=== PATIENT | male | born 1980 | race Caucasian/White ===

== ENCOUNTER 2017-12-15 01:13 | Emergency (ER) | payer SELFPAY ==
[~2017-12-15] VITALS: Ht 188 cm; Wt 115.0 kg
[2017-12-15] MEDS ORDERED: LEVE500 PO ×2 (01:18→04:30)
[2017-12-15] MEDS ORDERED: DEPA500T3 PO (01:18)
[2017-12-15 01:20] VITALS: BP 164/90; PULSE 89; RESP 18; TEMP 98.1; O2SAT 98
[2017-12-15] MEDS ORDERED: LORazepam 2 MG/ML VIAL ONE (01:21)
[2017-12-15 01:26] VITALS: O2SAT 99
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
[2017-12-15] MEDS ORDERED: LORazepam 2 MG/ML VIAL IV PUSH ONE (01:30)
[2017-12-15] MEDS ORDERED: SODIUM CHLOR 0.9% 1000 ML INJ 1,000 ML IV ONE (01:30)
[2017-12-15 01:37] LABS: AUTOMATED NEUTROPHIL # 7.5 TH/MM3 (1.8-7.7); BASOPHIL # 0.1 TH/MM3 (0-0.2); BASOPHIL % 0.9 % (0.0-2.0); EOSINOPHIL # 0.1 TH/MM3 (0-0.4); EOSINOPHIL % 0.8 % (0.0-4.0); HEMATOCRIT 43.5 % (39.0-51.0); LYMPH % 19.7 % (9.0-44.0); MEAN CELL VOLUME 83.7 FL (80.0-100.0); MEAN CORPUSCULAR HEMOGLOBIN 28.8 PG (27.0-34.0); MEAN CORPUSCULAR HGB CONC 34.5 % (32.0-36.0); MEAN PLATELET VOLUME 9.2 FL (7.0-11.0); MONO % 5.8 % (0.0-8.0); MONOCYTE # 0.6 TH/MM3 (0-0.9); NEUT % 72.8 % (16.0-70.0); PLATELET COUNT 210 TH/MM3 (150-450); RED BLOOD COUNT 5.19 MIL/MM3 (4.50-5.90); RED CELL DISTRIBUTION WIDTH 14.1 % (11.6-17.2); WHITE BLOOD COUNT 10.3 TH/MM3 (4.0-11.0)
[2017-12-15 01:53] LABS: INTERNATIONAL NORMALIZED RATIO 1.1 RATIO; PROTHROMBIN TIME - PATIENT 10.7 SEC (9.8-11.6)
[2017-12-15 01:57] LABS: ALBUMIN 4.3 GM/DL (3.4-5.0); ALT (GPT) 19 U/L (12-78); AST (GOT) 14 U/L (15-37); BICARBONATE 20.2 MEQ/L (21.0-32.0); BLOOD UREA NITROGEN 14 MG/DL (7-18); CHLORIDE 109 MEQ/L (98-107); CREATININE 1.35 MG/DL (0.60-1.30); GLOMERULAR FILTRATION RATE 60 ML/MIN (>89); GLUCOSE,RANDOM 82 MG/DL (74-106); MAGNESIUM 2.1 MG/DL (1.5-2.5); SODIUM (NA) 142 MEQ/L (136-145)
[2017-12-15] MEDS ORDERED: WARF4TAB51 PO (01:58)
[2017-12-15 01:59] LABS: ALKALINE PHOSPHATASE 61 U/L (45-117); TOTAL BILIRUBIN ADULT 0.4 MG/DL (0.2-1.0); TOTAL PROTEIN 8.3 GM/DL (6.4-8.2)
[2017-12-15] MEDS ORDERED: levETIRAcetam INJ 500 MG in SODIUM CHLORIDE 0.9% INJ 100 ML IV ONE (02:00)
--- NOTE | 2017-12-15 02:13 | RADRPT ---
EXAM DATE/TIME: 12/15/2017 01:38 [facility] COMPARISON: No previous studies available for comparison. INDICATIONS : Shortness of breath. MEDICAL HISTORY : None. SURGICAL HISTORY : None. ENCOUNTER: Initial ACUITY: 1 day PAIN SCORE: 0/10 LOCATION: Bilateral chest FINDINGS: A single view of the chest demonstrates the lungs to be symmetrically aerated without evidence of mas s, infiltrate or effusion. The cardiomediastinal contours are unremarkable. Osseous structures are intact. CONCLUSION: The lungs are clear. Eliezer Short MD on December 15, 2017 at 2:11 Board Certified Radiologist. This report was verified electronically.
[2017-12-15 02:46] LABS: BILIRUBIN, URINE NEG (NEG); BLOOD, URINE NEG (NEG); GLUCOSE,URINE NEG (NEG); KETONE, URINE 10 mg/dL (NEG); MUCUS URINE FEW /lpf (OCC); NITRITE,URINE NEG (NEG); URINE COLOR LIGHT-YELLOW (YELLW/STRAW); URINE LEUKOCYTE ESTERASE TRACE (NEG)
--- NOTE | 2017-12-15 02:52 | RADRPT ---
EXAM DATE/TIME: 12/15/2017 02:03 [facility] COMPARISON: No previous studies available for comparison. INDICATIONS : Seizure. RADIATION DOSE: 56.35 CTDIvol (mGy) MEDICAL HISTORY : Cardiovascular disease. Seizures. SURGICAL HISTORY : None. ENCOUNTER: Initial ACUITY: 1 day PAIN SCALE: 0/10 LOCATION: cranial TECHNIQUE: Multiple contiguous axial images were obtained of the head. Using automated exposure control and adj ustment of the mA and/or kV according to patient size, radiation dose was kept as low as reasonably a chievable to obtain optimal diagnostic quality images. DICOM format image data is available electro nically for review and comparison. FINDINGS: CEREBRUM: The ventricles are normal for age. No evidence of midline shift, mass lesion, hemorrhage or acute in farction. No extra-axial fluid collections are seen. POSTERIOR FOSSA: The cerebellum and brainstem are intact. The 4th ventricle is midline. The cerebellopontine angle i s unremarkable. EXTRACRANIAL: The visualized portion of the orbits is intact. SKULL: The calvaria is intact. No evidence of skull fracture. CONCLUSION: 1. Negative noncontrast CT brain. Eliezer Short MD on December 15, 2017 at 2:50 Board Certified Radiologist. This report was verified electronically.
[2017-12-15 03:00] VITALS: BP 146/88; PULSE 68; RESP 18; O2SAT 97
[2017-12-15 04:31] VITALS: BP 138/81; PULSE 62; RESP 18; O2SAT 97
[2017-12-15 04:32] VITALS: BP 146/88; PULSE 68; RESP 18; O2SAT 97
[2017-12-15 06:08] VITALS: BP 138/74; PULSE 61; RESP 16; O2SAT 97
[2017-12-15] MEDS ORDERED: LISI-519 PO (08:49)
[2017-12-15] MEDS ORDERED: NITR1SUB3 SL (08:49)
--- NOTE | 2017-12-15 11:27 | EKG ---
Date Performed: 12/15/2017 Time Performed: 01:33:16 PTAGE: 37 years EKG: Sinus rhythm POSSIBLE RIGHT VENTRICULAR CONDUCTION DELAY BORDERLINE ECG NO PREVIOUS TRACING DOCTOR: Lizbet Richards Interpretating Date/Time 12/17/2017 07:27:18
== END 2017-12-15 06:31 | disposition home or self-care (01) ==
LOC: NEPE 01:13 → NEDAMB 06:31
DX: G40.909 Epilepsy, unspecified, not intractable, without status epilepticus (principal); F19.10 Other psychoactive substance abuse, uncomplicated; F14.10 Cocaine abuse, uncomplicated; F17.210 Nicotine dependence, cigarettes, uncomplicated; Z91.14 Patient's other noncompliance with medication regimen; Z87.820 Personal history of traumatic brain injury; Z79.01 Long term (current) use of anticoagulants; Z79.899 Other long term (current) drug therapy
CPT/HCPCS: 70450; 71045; 80053; 80164; 80307; 81001; 83735; 85025; 85610; 85730; 93005; 96361; 96365; 96375; 99285; J1953; J2060; J7030

== ENCOUNTER 2017-12-15 07:32 | Emergency (ER) | payer SELFPAY ==
[~2017-12-15] VITALS: Ht 190.5 cm; Wt 100.0 kg
[~2017-12-15 07:32] MED LIST: DEPA500T3 PO; LEVE500 PO; WARF4TAB51 PO
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
[2017-12-15] MEDS ORDERED: VALPROATE INJ 750 MG in SODIUM CHLORIDE 0.9% INJ 100 ML IV ONE (08:30)
[2017-12-15] MEDS ORDERED: levETIRAcetam INJ 500 MG in SODIUM CHLORIDE 0.9% INJ 100 ML IV ONE (08:30)
[2017-12-15 08:40] VITALS: BP 146/88; PULSE 75; RESP 17; TEMP 98.6; O2SAT 99
[2017-12-15 08:42] VITALS: BP 146/88; PULSE 73; RESP 17; TEMP 98.6; O2SAT 99
[2017-12-15] MEDS ORDERED: NITR1SUB3 SL (08:49)
[2017-12-15] MEDS ORDERED: LISI-519 PO (08:49)
== END 2017-12-15 09:27 | disposition left against medical advice (07) ==
LOC: NEPC 07:32
DX: G40.909 Epilepsy, unspecified, not intractable, without status epilepticus (principal); F17.210 Nicotine dependence, cigarettes, uncomplicated; Z91.14 Patient's other noncompliance with medication regimen; Z88.0 Allergy status to penicillin; Z79.899 Other long term (current) drug therapy; Z79.01 Long term (current) use of anticoagulants
CPT/HCPCS: 99281

== ENCOUNTER 2017-12-15 09:36 | Observation (INO) | payer SELFPAY ==
[~2017-12-15] VITALS: Ht 190.5 cm; Wt 3.0 kg
[2017-12-15] VITALS (8 sets, daily range): BP systolic 131–162; BP diastolic 82–94; PULSE 63–73; RESP 17–20; TEMP 97.3–98.3; O2SAT 95–99
[~2017-12-15 09:36] MED LIST changes: +LISI-519 PO; +NITR1SUB3 SL
[2017-12-15] MEDS ORDERED: levETIRAcetam INJ 500 MG in SODIUM CHLORIDE 0.9% INJ 100 ML IV ONE (10:00)
[2017-12-15] MEDS ORDERED: VALPROATE INJ 750 MG in SODIUM CHLORIDE 0.9% INJ 100 ML IV ONE (10:00)
--- NOTE | 2017-12-15 10:09 | PD ---
HPI Chief Complaint: Seizure Time Seen by Provider: 09:53 Travel History International Travel<30 days: No Contact w/Intl Traveler<30days: No Traveled to known affect area: No History of Present Illness HPI This patient signed out AGAINST MEDICAL ADVICE a few minutes ago. I had wanted to keep him overnight for uncontrolled seizure disorder. He has been noncompliant with his medications. He refused his IV loading of Depakote and Keppra. He walked upstairs to the [facility] and reportedly had another seizure. He is brought back down for the third time today. This time he agrees to stay and receive his medications. Duration of the event is unknown. I did not witness it nor there are any eyewitnesses to question at this time. His only been out of the emergency room a few minutes. Symptom severity is moderate. No alleviating factors. He does not look postictal. Symptoms exacerbated by his noncompliance and poor judgment PFSH Past Medical History Hx Anticoagulant Therapy: Yes Cardiovascular Problems: Yes (AORTIC VALVE) Seizures: Yes Tetanus Vaccination: < 5 Years Past Surgical History Neurologic Surgery: Yes (PIECE OF SHRAPNEL REMOVED FROM HEAD) Social History Alcohol Use: Yes (Occasional use) Tobacco Use: Yes (4-5 cigarettes per day) Substance Use: Yes (MARIJUANA) Allergies-Medications (Allergen,Severity, Reaction): Coded Allergies: Penicillins (Verified Allergy, Unknown, 12/15/17) iodine (Verified Allergy, Unknown, 12/15/17) Reported Meds & Prescriptions Reported Meds & Active Scripts Active Keppra (Levetiracetam) 500 Mg Tab 500 Mg PO BID Reported Nitroglycerin SL (Nitroglycerin) 0.4 Mg Subl 0.4 Mg SL DIRECTED PRN ONE TABLET UNDER THE TONGUE NEEDED FOR CHEST PAIN, MAY REPEAT EVERY FIVE MINUTES FOR A TOTAL OF 3 DOSES OR CALL 911 IF NO RELIEF Lisinopril 5 Mg Tab 5 Mg PO DAILY Warfarin 2 Mg Tab Unknown Dose PO DAILY Depakote ER (Divalproex Sodium) 500 Mg Elidia 500 Mg PO DAILY Review of Systems General / Constitutional: No: Fever Eyes: No: Visual changes HENT: No: Headaches Cardiovascular: No: Chest Pain or Discomfort Respiratory: No: Shortness of Breath Gastrointestinal: No: Abdominal Pain Genitourinary: No: Dysuria Musculoskeletal: No: Pain Skin: No Rash Neurologic: Positive: Seizures, No: Weakness Psychiatric: No: Depression Endocrine: No: Polydipsia Hematologic/Lymphatic: No: Easy Bruising Physical Exam Narrative GENERAL: Well-nourished, well-developed patient in no apparent distress. SKIN: Focused skin assessment reveals no rash and nodules. Skin is Warm and dry. HEAD: Atraumatic. Normocephalic. EYES: Pupils equal and round. No scleral icterus. No injection or drainage. ENT: No nasal bleeding or discharge. Mucous membranes pink and moist. NECK: Trachea midline. No JVD. CARDIOVASCULAR: Regular rate and rhythm. No murmur appreciated. RESPIRATORY: No accessory muscle use. Clear to auscultation. Breath sounds equal bilaterally. GASTROINTESTINAL: Abdomen soft, non-tender, nondistended. Hepatic and splenic margins not palpable. MUSCULOSKELETAL: No obvious deformities. No clubbing. No cyanosis. No edema. NEUROLOGICAL: Awake and alert. No obvious cranial nerve deficits. Motor grossly within normal limits. Normal speech. PSYCHIATRIC: Appropriate mood and affect; insight and judgment poor Data Data Last Documented VS Vital Signs Date Time Temp Pulse Resp B/P (MAP) Pulse Ox O2 Delivery O2 Flow Rate FiO2 12/15/17 09:44 97.8 73 18 157/94 (115) 98 Room Air Orders Orders Iv Access Insert/Monitor (12/15/17 09:55) Levetiracetam Inj (Keppra Inj) (12/15/17 10:00) Valproate Inj (Depacon Inj) (12/15/17 10:00) Electrocardiogram (12/15/17 07:44) MDM Medical Decision Making Medical Screen Exam Complete: Yes Emergency Medical Condition: Yes Medical Record Reviewed: Yes Differential Diagnosis Recurrent seizure, pseudoseizure, tremor Narrative Course I have reviewed the patient's electronic medical record. Reviewed both visits from earlier today Patient now agrees to stay in the hospital. I am giving him IV Depakote and IV Keppra as I had ordered on the previous visit that he refused but now agrees to take We will observe him for a while Curiously neither myself nor the night physician noticed any type of postictal state or injury from all of these seizures I reviewed the hospitalist will admit for uncontrolled seizure disorder Diagnosis Primary Impression: Uncontrolled seizures Qualified Codes: R56.9 - Unspecified convulsions Additional Impressions: Noncompliance Epilepsy Qualified Codes: G40.909 - Epilepsy, unspecified, not intractable, without status epilepticus Admitting Information Admitting Physician Requests: it Nitin Young MD Dec 15, 2017 10:09
[2017-12-15] MEDS ORDERED: LACTULOSE SYRUP 20 GM/30 ML CUP PO PRN (11:30)
[2017-12-15] MEDS ORDERED: NALOXONE HCL 0.4 MG/ML AMP IV PUSH PRN (11:30)
[2017-12-15] MEDS ORDERED: ONDANSETRON HCL 4 MG/2 ML VIAL IVP PRN (11:30)
[2017-12-15] MEDS ORDERED: SENNOSIDES 8.6 MG TAB PO PRN (11:30)
[2017-12-15] MEDS ORDERED: SODIUM CHLORIDE 0.9% FLUSH 10 ML FLUSH IV FLUSH PRN (11:30)
[2017-12-15] MEDS ORDERED: MAGNESIUM HYDROXIDE SUSP 30 ML CUP PO PRN (11:30)
[2017-12-15] MEDS ORDERED: BISACODYL 10 MG SUPP RECTAL PRN (11:30)
[2017-12-15] MEDS ORDERED: amLODIPine BESYLATE 5 MG TAB PO ONE (12:00)
[2017-12-15] MEDS ORDERED: ENOXAPARIN SODIUM 40 MG/0.4 ML SYRINGE SQ SCH (12:00)
[2017-12-15] MEDS: SODIUM CHLOR 0.9% 1000 ML INJ 1,000 ML IV SCH ×2 (12:05→20:39)
[2017-12-15] MEDS: ACETAMINOPHEN 325 MG TAB PO PRN ×2 (12:07→20:53)
--- NOTE | 2017-12-15 15:13 | HHI.HP ---
HPI Service [facility] Primary Care Physician [facility] Admission Diagnosis uncontrolled sz disorder Diagnoses: Chief Complaint: Seizure Travel History International Travel<30 Days: No Contact w/Intl Traveler <30 Da: No Traveled to Known Affected Are: No History of Present Illness Written by Daryl Aguilera, acting as scribe for Dr. Maciel on 12/15/17 at 15:13. Patient is a 37-year-old male with primary medical history of seizure disorder, questionable valve disorder, noncompliance who came into the hospital for uncontrolled seizures. Apparently, patient states that he called the ambulance last night or his roommate has called the ambulance last night because of uncontrolled seizure. Physicians in the ED are working him up and he signed out AGAINST MEDICAL ADVICE and went to the cafeteria. Reportedly he had another episode of seizure. Patient has been noncompliant with his medications. Stating he just moved from [place] to the area about a week ago. States that he had multiple seizures yesterday and today. States that his girlfriend ran away with his medication and his truck. States that when she had seizures his whole body shakes. He also reports that he has a [facility] and his last dose that he took was Friday. States that he is supposed to be on it every day however he only takes it for about 3 times a week. Admits to medication noncompliance. He has not established with the [facility] in the area. Patient does not appear to be post ictal. He states that his seizures started after he had piece of shrapnel removed from his head, ? Craniotomy. Reports headache, back of his head, nonradiating , does not know what alleviates or aggravates his symptoms. Reports occasional anxiety, PTSD but not on any meds. Denies SOB/ dyspnea. Denies chest pain, palpitations. Denies fevers, chills, n/v/d. Denies dysuria. Review of Systems Except as stated in HPI: all other systems reviewed are Neg Past Family Social History Past Medical History Valve Issue Seizure DO HTN Past Surgical History Right Ankle Surgery Crainiotomy for shrapnel injury Reported Medications Reported Meds & Active Scripts Active Keppra (Levetiracetam) 500 Mg Tab 500 Mg PO BID Reported Nitroglycerin SL (Nitroglycerin) 0.4 Mg Subl 0.4 Mg SL DIRECTED PRN ONE TABLET UNDER THE TONGUE NEEDED FOR CHEST PAIN, MAY REPEAT EVERY FIVE MINUTES FOR A TOTAL OF 3 DOSES OR CALL 911 IF NO RELIEF Lisinopril 5 Mg Tab 5 Mg PO DAILY Warfarin 2 Mg Tab Unknown Dose PO DAILY Depakote ER (Divalproex Sodium) 500 Mg Elidia 500 Mg PO DAILY Allergies: Coded Allergies: Penicillins (Verified Allergy, Unknown, 12/15/17) iodine (Verified Allergy, Unknown, 12/15/17) Active Ordered Medications Current Medications Medications (Trade) Dose Ordered Sig/Nehal Route Start Time Stop Time Status Last Admin Sodium Chloride 1,000 ml @ 100 mls/hr Q10H IV 12/15/17 11:27 12/15/17 12:05 (NS Flush) 2 ml UNSCH PRN IV FLUSH 12/15/17 11:30 (NS Flush) 2 ml BID IV FLUSH 12/15/17 21:00 (Tylenol) 650 mg Q4H PRN PO 12/15/17 11:30 12/15/17 12:07 (Zofran Inj) 4 mg Q6H PRN IVP 12/15/17 11:30 (Lovenox Inj) 40 mg Q24H SQ 12/15/17 12:00 (Narcan Inj) 0.4 mg UNSCH PRN IV PUSH 12/15/17 11:30 (Charlene-Colace) 1 tab BID PO 12/15/17 21:00 (Milk Of Magnesia Liq) 30 ml Q12H PRN PO 12/15/17 11:30 (Senokot) 17.2 mg Q12H PRN PO 12/15/17 11:30 (Dulcolax Supp) 10 mg DAILY PRN RECTAL 12/15/17 11:30 (Lactulose Liq) 30 ml DAILY PRN PO 12/15/17 11:30 (Depakote Er) 500 mg DAILY PO 12/16/17 09:00 (Keppra) 500 mg BID PO 12/15/17 21:00 (Prinivil) 5 mg DAILY PO 12/16/17 09:00 (Norvasc) 5 mg DAILY PO 12/16/17 09:00 Family History Does not know family medical history, family members when he was 15 Social History Recently moved here from [place]. [facility] but has not [facility] with the [facility] in the area Alcohol use, not daily - 2-3 beers twice a month Smoking 2-3 cigarettes/ day Denies Illicit drug use Physical Exam Vital Signs Vital Signs Date Time Temp Pulse Resp B/P (MAP) Pulse Ox O2 Delivery O2 Flow Rate FiO2 12/15/17 09:44 97.8 73 18 157/94 (115) 98 Room Air 12/15/17 09:43 73 18 97 Room Air 12/15/17 09:39 97.8 73 18 157/94 (115) 97 Physical Exam GENERAL: This is a well-nourished, well-developed patient, in no apparent distress. SKIN: No rashes, ecchymoses or lesions. Cool and dry. HEAD: Atraumatic. Normocephalic. No temporal or scalp tenderness. EYES: Pupils equal round and reactive. Extraocular motions intact. No scleral icterus. No injection or drainage. ENT: Nose without bleeding, purulent drainage or septal hematoma. Throat without erythema, tonsillar hypertrophy or exudate. Uvula midline. Airway patent. NECK: Trachea midline. No JVD or lymphadenopathy. Supple, nontender, no meningeal signs. CARDIOVASCULAR: Regular rate and rhythm without murmurs, gallops, or rubs. RESPIRATORY: Clear to auscultation. Breath sounds equal bilaterally. No wheezes , rales, or rhonchi. GASTROINTESTINAL: Abdomen soft, non-tender, nondistended. No hepato-splenomegaly , or palpable masses. No guarding. MUSCULOSKELETAL: Extremities without clubbing, cyanosis, or edema. No joint tenderness, effusion, or edema noted. No calf tenderness. Negative Homans sign bilaterally. NEUROLOGICAL: Awake and alert. Cranial nerves II through XII intact. Motor and sensory grossly within normal limits. Five out of 5 muscle strength in all muscle groups. Normal speech. Imaging CT of the head negative Caprini VTE Risk Assessment Caprini VTE Risk Assessment: No/Low Risk (score <= 1) Caprini Risk Assessment Model Point Value = 1 Point Value = 2 Point Value = 3 Point Value = 5 Age 41-60 Minor surgery BMI > 25 kg/m2 Swollen legs Varicose veins or History of unexplained or recurrent spontaneous Oral contraceptives or hormone replacement Sepsis (< 1 month) Serious lung disease, including pneumonia (< 1 month) Abnormal pulmonary function Acute myocardial infarction Congestive heart failure (< 1 month) History of inflammatory bowel disease Medical patient at bed rest Age 61-74 Arthroscopic surgery Major open surgery (> 45 min) Laparoscopic surgery (> 45 min) Malignancy Confined to bed (> 72 hours) Immobilizing plaster cast Central venous access Age >= 75 History of VTE Family history of VTE Factor V Leiden Prothrombin [id number] Lupus anticoagulant Anticardiolipin antibodies Elevated serum homocysteine Heparin-induced thrombocytopenia Other congenital or acquired thrombophilia Stroke (< 1 month) Elective arthroplasty Hip, pelvis, or leg fracture Acute spinal cord injury (< 1 month) Prophylaxis Regimen Total Risk Factor Score Risk Level Prophylaxis Regimen 0-1 Low Early ambulation 2 Moderate Order ONE of the following: *Sequential Compression Device (SCD) *Heparin 5000 units SQ BID 3-4 Higher Order ONE of the following medications: *Heparin 5000 units SQ TID *Enoxaparin/Lovenox 40 mg SQ daily (WT < 150 kg, CrCl > 30 mL/min) *Enoxaparin/Lovenox 30 mg SQ daily (WT < 150 kg, CrCl > 10-29 mL/min) *Enoxaparin/Lovenox 30 mg SQ BID (WT < 150 kg, CrCl > 30 mL/min) AND/OR *Sequential Compression Device (SCD) 5 or more Highest Order ONE of the following medications: *Heparin 5000 units SQ TID (Preferred with Epidurals) *Enoxaparin/Lovenox 40 mg SQ daily (WT < 150 kg, CrCl > 30 mL/min) *Enoxaparin/Lovenox 30 mg SQ daily (WT < 150 kg, CrCl > 10-29 mL/min) *Enoxaparin/Lovenox 30 mg SQ BID (WT < 150 kg, CrCl > 30 mL/min) AND *Sequential Compression Device (SCD) Assessment and Plan Problem List: (1) Noncompliance ICD Code: Z91.19 - Patient's noncompliance with other medical treatment and regimen Status: Acute (2) Uncontrolled seizures ICD Code: R56.9 - Unspecified convulsions Status: Acute Assessment and Plan Patient is a 37-year-old male with primary medical history of seizure disorder, questionable valve disorder, noncompliance who came into the hospital for uncontrolled seizures. Seizure disorder Noncompliance with medication -Patient went to the hospital for evaluation of seizure early today however he does not want to stay and signed AGAINST MEDICAL ADVICE. -Valproic acid less than 3 -Patient was given IV Keppra bolus. Restarted medication Keppra 500 mg twice daily, Depakote 500 mg daily -Recheck levels -Seizure precaution -Neurochecks Substance abuse -Patient is positive for benzos, cannabinoids, ethanol alcohol -Patient was counseled on the risks and effects of substance use with seizure disorder. HTN Questionable heart valve disorder -Reports on Coumadin but was not compliant and only taking it 3 times a week. -Recent INR subtherapeutic -Check echo -Check EKG -Elevated BP, hold off lisinopril for now secondary to acute kidney injury, start amlodipine 5 mg daily. -Monitor BP trend PTSD? -We will consult psychiatry if warranted DVT prop Lovenox This note was transcribed by MIGUEL Spence. I, Dr. Jenn Maciel personally performed the history, physical exam, and medical decision making; and confirmed the accuracy of the information in the transcribed note. Authenticated by Dr. Jenn Maciel on 12/15/17 at 15:13. Code Status Full code Discussed Condition With Patient, nursing Problem Qualifiers (1) Uncontrolled seizures: Qualified Codes: R56.9 - Unspecified convulsions Daryl Snow Dec 15, 2017 15:13 Jenn Maciel MD Dec 15, 2017 15:30
--- NOTE | 2017-12-15 18:26 | MG ---
cc: Kain Reeder MD REFERRING PHYSICIAN: Dr. Maciel DESCRIPTION: An EEG was obtained on this 37 year old patient with history of uncontrolled seizures, noncompliance to anticonvulsants. This EEG shows a lot of 8-9 per second alpha rhythms posteriorly. There are beta rhythms centrally and frontally. There is a mild amount of intermixed theta activity. There are K complexes, some vertex sharp activity during sleep. The patient seems awake and asleep intermittently. Photic stimulation was unremarkable. INTERPRETATION: A very mildly abnormal EEG because of intermixed slowing intermittently, suggesting a very mild, diffuse disturbance of cerebral function. No epileptiform features present. Kain Ambriz. MD L[facility]/ , 04:59 PM , 05:43 PM
[2017-12-15] MEDS: SODIUM CHLORIDE 0.9% FLUSH 10 ML FLUSH IV FLUSH SCH (20:39)
[2017-12-15] MEDS: DOCUSATE SODIUM 50 MG/SENNA 8.6 MG TAB PO SCH (20:42)
[2017-12-15] MEDS: levETIRAcetam 500 MG TAB PO SCH (20:42)
--- NOTE | 2017-12-15 21:21 | EKG ---
Date Performed: 12/15/2017 Time Performed: 07:44:16 PTAGE: 37 years EKG: Sinus rhythm WITH SINUS ARRHYTHMIA POSSIBLE RIGHT VENTRICULAR CONDUCTION DELAY Since previous tracing, no signifi cant change noted BORDERLINE ECG PREVIOUS TRACING : 12/15/2017 01.33 DOCTOR: Lizbet Richards Interpretating Date/Time 12/15/2017 21:19:45
[2017-12-16] VITALS: PULSE 68
[2017-12-16 02:50] VITALS: BP 120/69; PULSE 56; RESP 18; TEMP 98.1; O2SAT 99
[2017-12-16 04:04] VITALS: PULSE 55
[2017-12-16 07:05] VITALS: PULSE 58
[2017-12-16 07:35] VITALS: BP 127/75; PULSE 76; RESP 14; TEMP 97.8; O2SAT 98
[2017-12-16 07:36] LABS: AUTOMATED NEUTROPHIL # 4.6 TH/MM3 (1.8-7.7); BASOPHIL % 0.5 % (0.0-2.0); EOSINOPHIL # 0.1 TH/MM3 (0-0.4); EOSINOPHIL % 1.8 % (0.0-4.0); HEMATOCRIT 42.3 % (39.0-51.0); HEMOGLOBIN 14.7 GM/DL (13.0-17.0); LYMPH % 29.3 % (9.0-44.0); LYMPHOCYTE # 2.2 TH/MM3 (1.0-4.8); MEAN CELL VOLUME 82.6 FL (80.0-100.0); MEAN CORPUSCULAR HEMOGLOBIN 28.7 PG (27.0-34.0); MEAN CORPUSCULAR HGB CONC 34.7 % (32.0-36.0); MEAN PLATELET VOLUME 9.3 FL (7.0-11.0); MONO % 7.6 % (0.0-8.0); MONOCYTE # 0.6 TH/MM3 (0-0.9); NEUT % 60.8 % (16.0-70.0); PLATELET COUNT 211 TH/MM3 (150-450); RED BLOOD COUNT 5.12 MIL/MM3 (4.50-5.90); RED CELL DISTRIBUTION WIDTH 14.1 % (11.6-17.2); WHITE BLOOD COUNT 7.6 TH/MM3 (4.0-11.0)
[2017-12-16 08:02] LABS: BICARBONATE 22.7 MEQ/L (21.0-32.0); CREATININE 1.1 MG/DL (0.60-1.30)
[2017-12-16] MEDS: DOCUSATE SODIUM 50 MG/SENNA 8.6 MG TAB PO SCH (08:42)
[2017-12-16] MEDS: levETIRAcetam 500 MG TAB PO SCH (08:43)
[2017-12-16] MEDS: SODIUM CHLORIDE 0.9% FLUSH 10 ML FLUSH IV FLUSH SCH (08:44)
[2017-12-16] MEDS ORDERED: LISINOPRIL 5 MG TAB PO SCH (09:00)
[2017-12-16] MEDS ORDERED: amLODIPine BESYLATE 5 MG TAB PO SCH (09:00)
[2017-12-16] MEDS ORDERED: DIVALPROEX SODIUM E.R. 500 MG TAB PO SCH (09:00)
--- NOTE | 2017-12-16 09:05 | HHI.PR ---
Subjective Remarks [facility] low at 18 Patient left AMA Objective Vitals Vital Signs Date Time Temp Pulse Resp B/P (MAP) Pulse Ox O2 Delivery O2 Flow Rate FiO2 12/16/17 07:35 97.8 76 14 127/75 (92) 98 12/16/17 07:05 58 12/16/17 04:04 55 12/16/17 02:50 98.1 56 18 120/69 (86) 99 12/16/17 00:00 68 12/15/17 22:39 97.3 65 17 142/94 (110) 97 12/15/17 21:32 68 12/15/17 21:09 98.3 72 18 162/94 (116) 97 12/15/17 15:57 97.8 65 20 137/82 (100) 95 12/15/17 15:39 63 19 131/85 (100) 99 12/15/17 15:17 63 19 131/85 (100) 99 Room Air 12/15/17 09:44 97.8 73 18 157/94 (115) 98 Room Air 12/15/17 09:43 73 18 97 Room Air 12/15/17 09:39 97.8 73 18 157/94 (115) 97 I/O 12/15/17 12/15/17 12/15/17 12/16/17 12/16/17 12/16/17 07:00 15:00 23:00 07:00 15:00 23:00 Intake Total 200 ml 300 ml Output Total 700 ml Balance 200 ml 300 ml -700 ml Intake IV Total 200 ml 300 ml Output Urine Total 700 ml # Voids 2 # Bowel Movements 1 Result Diagram: 12/16/17 0608 12/16/17 0608 Objective Remarks Left AMA A/P Problem List: (1) Noncompliance ICD Code: Z91.19 - Patient's noncompliance with other medical treatment and regimen Status: Acute (2) Uncontrolled seizures ICD Code: R56.9 - Unspecified convulsions Status: Acute Assessment and Plan Patient left Problem Qualifiers (1) Uncontrolled seizures: Qualified Codes: R56.9 - Unspecified convulsions Jenn Maciel MD Dec 16, 2017 09:05
[2017-12-16 09:53] VITALS: BP 147/84; PULSE 64; RESP 16; TEMP 98.1; O2SAT 96
--- NOTE | 2017-12-16 21:22 | HHI.DS ---
Discharge Summary Admission Date Dec 15, 2017 at 11:30 Discharge Date: Dec 16, 2017 Admitting Diagnosis uncontrolled sz disorder (1) Noncompliance ICD Code: Z91.19 - Patient's noncompliance with other medical treatment and regimen Status: Acute (2) Uncontrolled seizures ICD Code: R56.9 - Unspecified convulsions Status: Acute Procedures No procedures Brief History - From Admission Written by Daryl Aguilera, acting as scribe for Dr. Maciel on 12/15/17 at 15:13. Patient is a 37-year-old male with primary medical history of seizure disorder, questionable valve disorder, noncompliance who came into the hospital for uncontrolled seizures. Apparently, patient states that he called the ambulance last night or his roommate has called the ambulance last night because of uncontrolled seizure. Physicians in the ED are working him up and he signed out AGAINST MEDICAL ADVICE and went to the cafeteria. Reportedly he had another episode of seizure. Patient has been noncompliant with his medications. Stating he just moved from [place] to the area about a week ago. States that he had multiple seizures yesterday and today. States that his girlfriend ran away with his medication and his truck. States that when she had seizures his whole body shakes. He also reports that he [facility] and his last dose that he took was Friday. States that he is supposed to be on it every day however he only takes it for about 3 times a week. Admits to medication noncompliance. He has not established with the [facility] in the area. Patient does not appear to be post ictal. He states that his seizures started after he had piece of shrapnel removed from his head, ? Craniotomy. Reports headache, back of his head, nonradiating , does not know what alleviates or aggravates his symptoms. Reports occasional anxiety, PTSD but not on any meds. Denies SOB/ dyspnea. Denies chest pain, palpitations. Denies fevers, chills, n/v/d. Denies dysuria. CBC/BMP: 12/16/17 0608 12/16/17 0608 Significant Findings Laboratory Tests Test 12/16/17 06:08 Estimat Glomerular Filtration Rate 76 ML/MIN (>89) Valproic Acid (Depakene) Level 18 MCG/ML (50-100) PE at Discharge Left AMA Pt update on day of discharge Left AMA Hospital Course Patient is a 37-year-old male with primary medical history of seizure disorder, questionable valve disorder, noncompliance who came into the hospital for uncontrolled seizures. Apparently, patient states that he called the ambulance last night or his roommate has called the ambulance last night because of uncontrolled seizure. Physicians in the ED are working him up and he signed out AGAINST MEDICAL ADVICE and went to the cafeteria. Reportedly he had another episode of seizure. Patient has been noncompliant with his medications. Stating he just moved from [place] to the area about a week ago. States that he had multiple seizures yesterday and today. States that his girlfriend ran away with his medication and his truck. States that when she had seizures his whole body shakes. He also reports that he has a [facility] to [facility] and his last dose that he took was Friday. States that he is supposed to be on it every day however he only takes it for about 3 times a week. Admits to medication noncompliance. He [facility] not [facility] with the [facility]. Patient does not appear to be post ictal. He states that his seizures started after he had piece of shrapnel removed from his head, ? Craniotomy. Reports headache, back of his head, nonradiating , does not know what alleviates or aggravates his symptoms. Reports occasional anxiety, PTSD but not on any meds. Denies SOB/ dyspnea. Denies chest pain, palpitations. Denies fevers, chills, n/v/d. Denies dysuria. Valproic acid repeat level is sub therapeutic. Patient left AMA in the morning 12/16/17 Pt Condition on Discharge: Stable Discharge Disposition: Discharge Home (left AMA) Discharge Time: > 30 minutes Jenn Maciel MD Dec 16, 2017 21:22
== END 2017-12-16 11:00 | disposition left against medical advice (07) ==
LOC: NEPC 09:36 → NEDA 11:30 → NEPGCP 16:12
PROVIDERS: ADMIT Hospitalist; ATTEND Hospitalist
DX: G40.909 Epilepsy, unspecified, not intractable, without status epilepticus (principal); I10 Essential (primary) hypertension; N17.9 Acute kidney failure, unspecified; R51 Headache; R94.01 Abnormal electroencephalogram [EEG]; I49.9 Cardiac arrhythmia, unspecified; F43.10 Post-traumatic stress disorder, unspecified; F17.210 Nicotine dependence, cigarettes, uncomplicated; F12.90 Cannabis use, unspecified, uncomplicated; Z91.14 Patient's other noncompliance with medication regimen; Z79.899 Other long term (current) drug therapy; Z79.01 Long term (current) use of anticoagulants
CPT/HCPCS: 80048; 80164; 85025; 93005; 95819; 96361; 96365; 96368; 99285; G0378; J1953; J7030

== ENCOUNTER 2017-12-16 10:58 | Inpatient (IN) | payer SELFPAY ==
[2017-12-16] VITALS (10 sets, daily range): BP systolic 124–181; BP diastolic 87–110; PULSE 66–109; RESP 16–20; TEMP 97.8–98.3; O2SAT 97–100
[~2017-12-16] VITALS: Ht 193 cm; Wt 109.5 kg
[2017-12-16] MEDS ORDERED: LORazepam 2 MG/ML VIAL IVS ONE (11:30)
[2017-12-16] MEDS ORDERED: SODIUM CHLORIDE 0.9% FLUSH 10 ML FLUSH IVF PRN (11:30)
--- NOTE | 2017-12-16 11:34 | PD ---
HPI Chief Complaint: Seizure Time Seen by Provider: 11:34 Travel History International Travel<30 days: No Contact w/Intl Traveler<30days: No Traveled to known affect area: No History of Present Illness HPI 37-year-old male with history of TBI and seizure disorder, treated with Keppra 500 mg twice daily as well as Depakote ER 500 mg daily. Patient also takes lisinopril 5 mg, warfarin 2 mg daily, and sublingual nitro 0.4 mg as needed chest pain. Patient was admitted yesterday for 3 seizures witnessed, and admitted overnight, with repeat Depakote levels taken today. Patient chose to leave AMA this morning, as he wished to go to the [place] for further treatment. Patient then had a witnessed seizure in the lobby while leaving the hospital, was brought to triage in the ED, and had another seizure witnessed in the waiting room. Patient is noted to have fallen and hit the back of his head. He has no open wounds or abrasions noted. He is now postictal but able to answer questions. Patient is complaining of headache and pain in the back of his head where he hit it. He denies any other injury currently. He is allergic to penicillin and iodine. PFSH Past Medical History Hx Anticoagulant Therapy: Yes Blood Disorders: No Anxiety: Yes Depression: Yes Cancer: No Cardiovascular Problems: Yes (HTN) Chest Pain: Yes Endocrine: No Genitourinary: No Immune Disorder: No Musculoskeletal: No Neurologic: Yes (seizures; TIA) Psychiatric: Yes (PTSD) Reproductive: No Respiratory: No Seizures: Yes Past Surgical History Neurologic Surgery: Yes (PIECE OF SHRAPNEL REMOVED FROM HEAD) Social History Alcohol Use: Yes (Occasional use) Tobacco Use: Yes (4-5 cigarettes per day) Substance Use: Yes (MARIJUANA) Allergies-Medications (Allergen,Severity, Reaction): Coded Allergies: Penicillins (Verified Allergy, Unknown, 12/15/17) iodine (Verified Allergy, Unknown, 12/15/17) Reported Meds & Prescriptions Reported Meds & Active Scripts Active Keppra (Levetiracetam) 500 Mg Tab 500 Mg PO BID Reported Nitroglycerin SL (Nitroglycerin) 0.4 Mg Subl 0.4 Mg SL DIRECTED PRN ONE TABLET UNDER THE TONGUE NEEDED FOR CHEST PAIN, MAY REPEAT EVERY FIVE MINUTES FOR A TOTAL OF 3 DOSES OR CALL 911 IF NO RELIEF Lisinopril 5 Mg Tab 5 Mg PO DAILY Warfarin 2 Mg Tab Unknown Dose PO DAILY Depakote ER (Divalproex Sodium) 500 Mg Elidia 500 Mg PO DAILY Review of Systems Except as stated in HPI: all other systems reviewed are Neg General / Constitutional: No: Fever Eyes: No: Visual changes HENT: No: Headaches Cardiovascular: No: Chest Pain or Discomfort Respiratory: No: Shortness of Breath Gastrointestinal: No: Abdominal Pain Genitourinary: No: Dysuria Musculoskeletal: No: Pain Skin: Positive Lesions (Scalp contusion), No Rash Neurologic: Positive: Seizures, Other (Currently postictal), No: Weakness, Dizziness, Syncope, Focal Abnormalities, Coordination Problem, Tremor, Ataxia, Headache, Change in Mentation, Slurred Speech, Paresthesia, Incontinence, Sensory Disturbance Psychiatric: No: Depression Endocrine: No: Polydipsia Hematologic/Lymphatic: No: Easy Bruising Physical Exam Narrative GENERAL: Patient appears postictal, but arousable. SKIN: Warm and dry. Normal color. Normal turgor. No open wounds or abrasions HEAD:. Normocephalic. Patient has obvious contusion with bump to the posterior scalp, no bony tenderness or deformity noted. EYES: Pupils equal and round. No scleral icterus. No injection or drainage. ENT: No nasal bleeding or discharge. Mucous membranes pink and moist. No dental injury noted. No buccal membrane injury. No tongue injuries noted. Pharynx is clear. Airways patent NECK: Trachea midline. No bony tenderness or step-off. Range of motion is full and nontender. Cervical spine is cleared utilizing Nexus criteria. CARDIOVASCULAR: Regular rate and rhythm. RESPIRATORY: No accessory muscle use. Clear to auscultation. Breath sounds equal bilaterally. GASTROINTESTINAL: Abdomen soft, non-tender, nondistended. Hepatic and splenic margins not palpable. MUSCULOSKELETAL: Extremities without clubbing, cyanosis, or edema. No obvious deformities. NEUROLOGICAL: Awake and alert. No obvious cranial nerve deficits. Motor grossly within normal limits. Five out of 5 muscle strength in the arms and legs. Normal speech. PSYCHIATRIC: Appropriate mood and affect; insight and judgment normal. Data Data Last Documented VS Vital Signs Date Time Temp Pulse Resp B/P (MAP) Pulse Ox O2 Delivery O2 Flow Rate FiO2 12/16/17 13:19 67 19 139/90 (106) 97 Room Air 12/16/17 11:[address] Brain W/O Iv Contrast(Rout) (12/16/17 ) Complete Blood Count With Diff (12/16/17 11:21) Valproic Acid (Depakene) (12/16/17 11:21) Blood Glucose (12/16/17 11:21) Ecg Monitoring (12/16/17 11:21) Iv Access Insert/Monitor (12/16/17 11:21) Oximetry (12/16/17 11:21) Comprehensive Metabolic Panel (12/16/17 11:21) Sodium Chloride 0.9% Flush (Ns Flush) (12/16/17 11:30) Lorazepam Inj (Ativan Inj) (12/16/17 11:30) Fosphenytoin Inj (Cerebyx Inj) (12/16/17 12:45) Valproate Inj (Depacon Inj) (12/16/17 13:15) Lorazepam Inj (Ativan Inj) (12/16/17 13:15) Consult Neurology (12/16/17 ) (Hub Use Only)Inp Phy Cons/Ref (12/16/17 ) Consult Psychiatry (12/16/17 ) Admit Order (Ed Use Only) (12/16/17 ) Labs Laboratory Tests Test 12/16/17 11:45 White Blood Count 6.5 TH/MM3 Red Blood Count 5.29 MIL/MM3 Hemoglobin 15.2 GM/DL Hematocrit 43.2 % Mean Corpuscular Volume 81.6 FL Mean Corpuscular Hemoglobin 28.7 PG Mean Corpuscular Hemoglobin Concent 35.1 % Red Cell Distribution Width 14.1 % Platelet Count 197 TH/MM3 Mean Platelet Volume 9.2 FL Neutrophils (%) (Auto) 71.8 % Lymphocytes (%) (Auto) 19.7 % Monocytes (%) (Auto) 6.5 % Eosinophils (%) (Auto) 1.5 % Basophils (%) (Auto) 0.5 % Neutrophils # (Auto) 4.7 TH/MM3 Lymphocytes # (Auto) 1.3 TH/MM3 Monocytes # (Auto) 0.4 TH/MM3 Eosinophils # (Auto) 0.1 TH/MM3 Basophils # (Auto) 0.0 TH/MM3 CBC Comment DIFF FINAL Differential Comment Blood Urea Nitrogen 12 MG/DL Creatinine 1.26 MG/DL Random Glucose 103 MG/DL Total Protein 8.0 GM/DL Albumin 4.2 GM/DL Calcium Level 9.5 MG/DL Alkaline Phosphatase 64 U/L Aspartate Amino Transf (AST/SGOT) 13 U/L Alanine Aminotransferase (ALT/SGPT) 20 U/L Total Bilirubin 0.9 MG/DL Sodium Level 138 MEQ/L Potassium Level 3.6 MEQ/L Chloride Level 107 MEQ/L Carbon Dioxide Level 18.1 MEQ/L Anion Gap 13 MEQ/L Estimat Glomerular Filtration Rate 65 ML/MIN Valproic Acid (Depakene) Level 23 MCG/ML [facility] Medical Decision Making Medical Screen Exam Complete: Yes Emergency Medical Condition: Yes Medical Record Reviewed: Yes Differential Diagnosis Seizure disorder. Recurrent seizure. Postictal. Non-therapeutic antiseizure meds. Narrative Course Patient appears medically stable but postictal. CT of the head and brain is ordered. Patient is given 1 mg lorazepam IV. Blood glucose is ordered as well as CBC, CMP, and Depakote level. Patient is discussed with Dr. Salazar who sees the patient as well. Patient is started on Cerebyx 1 g IV. Patient is taken to CT, and has a third seizure since this morning. CBC is unremarkable. Chemistries unremarkable except for carbon dioxide of 18.1, GFR 65, AST is 13. Depakote level is 23 up from 18 yesterday. Patient is given an additional dose of valproic acid 500 mg IV. Patient is given an additional dose of lorazepam 1 mg IV. Neurology consult is placed. CT is negative for acute process per radiologist. I discussed the patient the need for admission, and neurological follow-up. He requested talking to the computer support specialist and agrees to stay until his seizures are controlled. Calls placed to the computer support specialist who comes and sees the patient. Call is placed to the hospitalist for admission. Diagnosis Primary Impression: Recurrent seizures Admitting Information Admitting Physician Requests: Admit Condition: Stable Damian Gutiérrez Dec 16, 2017 11:34
--- NOTE | 2017-12-16 11:37 | PD ---
Data Data Last Documented VS Vital Signs Date Time Temp Pulse Resp B/P (MAP) Pulse Ox O2 Delivery O2 Flow Rate FiO2 12/16/17 13:19 67 19 139/90 (106) 97 Room Air 12/16/17 11:[address] Brain W/O Iv Contrast(Rout) (12/16/17 ) Complete Blood Count With Diff (12/16/17 11:21) Valproic Acid (Depakene) (12/16/17 11:21) Blood Glucose (12/16/17 11:21) Ecg Monitoring (12/16/17 11:21) Iv Access Insert/Monitor (12/16/17 11:21) Oximetry (12/16/17 11:21) Comprehensive Metabolic Panel (12/16/17 11:21) Sodium Chloride 0.9% Flush (Ns Flush) (12/16/17 11:30) Lorazepam Inj (Ativan Inj) (12/16/17 11:30) Fosphenytoin Inj (Cerebyx Inj) (12/16/17 12:45) Valproate Inj (Depacon Inj) (12/16/17 13:15) Lorazepam Inj (Ativan Inj) (12/16/17 13:15) Consult Neurology (12/16/17 ) (Hub Use Only)Inp Phy Cons/Ref (12/16/17 ) Consult Psychiatry (12/16/17 ) Admit Order (Ed Use Only) (12/16/17 ) Labs Laboratory Tests Test 12/16/17 11:45 White Blood Count 6.5 TH/MM3 Red Blood Count 5.29 MIL/MM3 Hemoglobin 15.2 GM/DL Hematocrit 43.2 % Mean Corpuscular Volume 81.6 FL Mean Corpuscular Hemoglobin 28.7 PG Mean Corpuscular Hemoglobin Concent 35.1 % Red Cell Distribution Width 14.1 % Platelet Count 197 TH/MM3 Mean Platelet Volume 9.2 FL Neutrophils (%) (Auto) 71.8 % Lymphocytes (%) (Auto) 19.7 % Monocytes (%) (Auto) 6.5 % Eosinophils (%) (Auto) 1.5 % Basophils (%) (Auto) 0.5 % Neutrophils # (Auto) 4.7 TH/MM3 Lymphocytes # (Auto) 1.3 TH/MM3 Monocytes # (Auto) 0.4 TH/MM3 Eosinophils # (Auto) 0.1 TH/MM3 Basophils # (Auto) 0.0 TH/MM3 CBC Comment DIFF FINAL Differential Comment Blood Urea Nitrogen 12 MG/DL Creatinine 1.26 MG/DL Random Glucose 103 MG/DL Total Protein 8.0 GM/DL Albumin 4.2 GM/DL Calcium Level 9.5 MG/DL Alkaline Phosphatase 64 U/L Aspartate Amino Transf (AST/SGOT) 13 U/L Alanine Aminotransferase (ALT/SGPT) 20 U/L Total Bilirubin 0.9 MG/DL Sodium Level 138 MEQ/L Potassium Level 3.6 MEQ/L Chloride Level 107 MEQ/L Carbon Dioxide Level 18.1 MEQ/L Anion Gap 13 MEQ/L Estimat Glomerular Filtration Rate 65 ML/MIN Valproic Acid (Depakene) Level 23 MCG/ML MDM Supervised Visit with BLAINE: Yes Narrative Course I, Dr. Salazar, have reviewed the advance practice practitioner's documentation and am in agreement, met with the patient face to face, made the diagnosis, and the medical decision making was done by me. *My assessment and Findings: Patient seen and examined by me in addition to Grisel Harris in the triage unit as well as Humza Gutiérrez in delta pod. Patient was emergency response team in the lobby of the hospital after signing out AMA, he has had at least 3 seizures none of which were witnessed by me but one was witnessed by Grisel daily and she described a general tonic-clonic seizure. Patient had another seizure in the CAT scan and he did have postictal phase. I have loaded him on Cerebyx, he is supposed to be on Depakote and Keppra, his Depakote level still low he was given a dose of Depakote. Neurologically nonfocal after his postictal phase were off he did complain of a head injury and a CT head was negative. Patient was seen by Dr. Marcano, discussed with Dr. Yepez for admission and she requests a psychiatric consult to for capacity. The patient did request transfer for the [facility] we have looked into this and he is not established with the [facility] in [place] Diagnosis Primary Impression: Recurrent seizures Admitting Information Admitting Physician Requests: Admit Condition: Stable Juan Salazar MD Dec 16, 2017 11:37
[2017-12-16 12:11] LABS: AUTOMATED NEUTROPHIL # 4.7 TH/MM3 (1.8-7.7); BASOPHIL % 0.5 % (0.0-2.0); EOSINOPHIL # 0.1 TH/MM3 (0-0.4); EOSINOPHIL % 1.5 % (0.0-4.0); HEMATOCRIT 43.2 % (39.0-51.0); HEMOGLOBIN 15.2 GM/DL (13.0-17.0); LYMPH % 19.7 % (9.0-44.0); LYMPHOCYTE # 1.3 TH/MM3 (1.0-4.8); MEAN CELL VOLUME 81.6 FL (80.0-100.0); MEAN CORPUSCULAR HEMOGLOBIN 28.7 PG (27.0-34.0); MEAN CORPUSCULAR HGB CONC 35.1 % (32.0-36.0); MEAN PLATELET VOLUME 9.2 FL (7.0-11.0); MONO % 6.5 % (0.0-8.0); MONOCYTE # 0.4 TH/MM3 (0-0.9); NEUT % 71.8 % (16.0-70.0); PLATELET COUNT 197 TH/MM3 (150-450); RED BLOOD COUNT 5.29 MIL/MM3 (4.50-5.90); RED CELL DISTRIBUTION WIDTH 14.1 % (11.6-17.2); WHITE BLOOD COUNT 6.5 TH/MM3 (4.0-11.0)
[2017-12-16 12:24] LABS: ALBUMIN 4.2 GM/DL (3.4-5.0); ALT (GPT) 20 U/L (12-78); AST (GOT) 13 U/L (15-37); BICARBONATE 18.1 MEQ/L (21.0-32.0); BLOOD UREA NITROGEN 12 MG/DL (7-18); CALCIUM 9.5 MG/DL (8.5-10.1); CHLORIDE 107 MEQ/L (98-107); CREATININE 1.26 MG/DL (0.60-1.30); GLOMERULAR FILTRATION RATE 65 ML/MIN (>89); GLUCOSE,RANDOM 103 MG/DL (74-106); SODIUM (NA) 138 MEQ/L (136-145)
[2017-12-16 12:27] LABS: ALKALINE PHOSPHATASE 64 U/L (45-117); TOTAL BILIRUBIN ADULT 0.9 MG/DL (0.2-1.0)
[2017-12-16] MEDS ORDERED: FOSPHENYTOIN SODIUM 500 MG PE/10 ML VIAL IV ONE (12:30)
[2017-12-16] MEDS ORDERED: FOSPHENYTOIN INJ 1,000 MGPE in SODIUM CHLORIDE 0.9% INJ 50 ML IV ONE (12:45)
[2017-12-16] MEDS ORDERED: VALPROATE INJ 500 MG in SODIUM CHLORIDE 0.9% INJ 100 ML IV ONE (13:15)
[2017-12-16] MEDS ORDERED: LORazepam 2 MG/ML VIAL IV PUSH ONE (13:15)
--- NOTE | 2017-12-16 13:52 | RADRPT ---
EXAM DATE/TIME: 12/16/2017 13:04 [facility] COMPARISON: CT BRAIN W/O CONTRAST, December 15, 2017, 2:03. INDICATIONS : Trauma. Fell and hit head. Seizure. RADIATION DOSE: 43.75 CTDIvol (mGy) MEDICAL HISTORY : Seizures. Cerebrovascular disease. Hypertension. SURGICAL HISTORY : None. ENCOUNTER: Initial ACUITY: 1 day PAIN SCALE: 6/10 LOCATION: cranial TECHNIQUE: Multiple contiguous axial images were obtained of the head. Using automated exposure control and adj ustment of the mA and/or kV according to patient size, radiation dose was kept as low as reasonably a chievable to obtain optimal diagnostic quality images. DICOM format image data is available electro nically for review and comparison. FINDINGS: CEREBRUM: The ventricles are normal for age. No evidence of midline shift, mass lesion, hemorrhage or acute in farction. No extra-axial fluid collections are seen. POSTERIOR FOSSA: The cerebellum and brainstem are intact. The 4th ventricle is midline. The cerebellopontine angle i s unremarkable. EXTRACRANIAL: The visualized portion of the orbits is intact. SKULL: The calvaria is intact. No evidence of skull fracture. CONCLUSION: Negative exam. No acute intracranial process, trauma or fracture Rj Ni MD on December 16, 2017 at 13:49 Board Certified Radiologist. This report was verified electronically.
--- NOTE | 2017-12-16 15:13 | MB ---
cc: Elana Marcano MD DATE OF CONSULT: REASON FOR CONSULTATION: Multiple seizures. HISTORY OF PRESENT ILLNESS: This is a 37-year-old male with a history of epilepsy. He states it started at age 12, but he has had traumatic brain injury since serving in the . He is currently on Keppra 500 mg b.i.d. and Depakote ER 500 mg daily. Apparently had 3 witnessed seizures. Levels were subtherapeutic of the Depakote. He had a positive UDS for opiates and cannabis and ethanol level of 28. His last seizure, he did hit his head. He had incontinence. PAST MEDICAL HISTORY: As stated. Also on anticoagulant therapy for possible cardiac issues. He has PTSD as well. SURGICAL HISTORY: Shrapnel removed from his head from IED. SOCIAL HISTORY: Alcohol use. Smokes, uses marijuana. ALLERGIES: PENICILLIN, IODINE. CURRENT MEDICATIONS: As stated are Keppra, nitroglycerin, lisinopril, warfarin, and Depakote ER. PHYSICAL EXAMINATION: VITAL SIGNS: Stable. Temperature is 98.3, pulse 67, respiratory rate 19, blood pressure 139/90, sating at 97%. GENERAL: He is awake, alert, he is fluent. His pupils reactive. No nystagmus. Face symmetrical. Tongue midline. Motor: No tremors, no drift or leg lag. Cerebellar normal. Gait is withheld. LABORATORY DATA: Reviewed. Chemistries: Carbon dioxide level is 18.1, GFR 65, AST 13. CBC was unremarkable. Tox screen. Depakote level of 23 prior to that. UDS was positive for opiates and cannabinoids. Ethanol level of 28. IMPRESSION: Refractory seizures, likely due to multiple factors. Keppra he states does not agree with him and makes his mood worse. Depakote ER 500 can be increased to 750 b.i.d. Level therapeutic should be near 50. He was also given some lorazepam and loaded with Cerebyx. Continue him on phenytoin 100 mg q.8 hours p.o. and we can leave him on the Keppra for the interim, but I want him to follow up with his neurologist at the [facility] to hopefully wean him off of the Keppra once his Depakote and Dilantin level are therapeutic. Unfortunately, they do not have many drugs on formulary at the [facility]. I would have preferred to start him on lacosamide. However, if he has a [facility], that may be an option if he is able to obtain that drug. I will increase his Depakote to 750 b.i.d., Dilantin 100 mg q.8, maintain therapeutic levels and he can be discharged if he is stable. No driving for 6 months, no climbing ladders, no swimming alone. Also, he may need a small amount of lorazepam in the event he has a breakthrough seizure. Continue current recommendations. Elana Marcano MD DF/TI , 02:46 PM , 03:12 PM
[2017-12-16] MEDS ORDERED: NALOXONE HCL 0.4 MG/ML AMP IV PUSH PRN (15:30)
[2017-12-16] MEDS ORDERED: ACETAMINOPHEN 325 MG TAB PO PRN (15:30)
[2017-12-16] MEDS ORDERED: ONDANSETRON HCL 4 MG/2 ML VIAL IVP PRN (15:30)
[2017-12-16] MEDS ORDERED: LACTULOSE SYRUP 20 GM/30 ML CUP PO PRN (15:30)
[2017-12-16] MEDS ORDERED: SENNOSIDES 8.6 MG TAB PO PRN (15:30)
[2017-12-16] MEDS ORDERED: BISACODYL 10 MG SUPP RECTAL PRN (15:30)
[2017-12-16] MEDS ORDERED: MAGNESIUM HYDROXIDE SUSP 30 ML CUP PO PRN (15:30)
[2017-12-16] MEDS ORDERED: SODIUM CHLORIDE 0.9% FLUSH 10 ML FLUSH IV FLUSH PRN (15:30)
[2017-12-16] MEDS ORDERED: ENOXAPARIN SODIUM 40 MG/0.4 ML SYRINGE SQ SCH (16:00)
[2017-12-16 16:20] LABS: PHENYTOIN (DILANTIN) 9.3 MCG/ML (10.0-20.0)
--- NOTE | 2017-12-16 18:00 | HHI.HP ---
[facility] Service [facility] Primary Care Physician [facility] Admission Diagnosis Unconrtolled Seizure. Diagnoses: Chief Complaint: seizures Travel History International Travel<30 Days: No Contact w/Intl Traveler <30 Da: No Traveled to Known Affected Are: No History of Present Illness Patient is a 37-year-old male with primary medical history of seizure disorder, questionable valve disorder, noncompliance who came into the hospital for uncontrolled seizures. Apparently, patient states that he called the ambulance last night or his roommate has called the ambulance last night because of uncontrolled seizure. Physicians in the ED were working him up and he signed out AGAINST MEDICAL ADVICE and went to the cafeteria. Reportedly he had another episode of seizure. Patient has been noncompliant with his medications. Stating he just moved from [place] to the area about a week ago. States that he had multiple seizures yesterday and today. States that his girlfriend ran away with his medication and his truck. States that when she had seizures his whole body shakes. He also reports that he has a valve disorder to the [place] started him on Coumadin and his last dose that he took was Friday. States that he is supposed to be on it every day however he only takes it for about 3 times a week. Admits to medication noncompliance. He has not [facility] with the [facility] the [facility]. Patient does not appear to be post ictal. He states that his seizures started after he had piece of shrapnel removed from his head, ? Craniotomy. Reports headache, back of his head, nonradiating , does not know what alleviates or aggravates his symptoms. Reports occasional anxiety, PTSD but not on any meds. Denies SOB/ dyspnea. Denies chest pain, palpitations. Denies fevers, chills, n/v/d. Denies dysuria. Valproic acid repeat level is sub therapeutic. Patient left AMA in the morning 12/16/17 Left AMA x2 came to ER 4x , and admitted 2 x in the last 24 hrs Psych was consulted however left AMa and not seen by psych . Reconsult psych. [facility] in [place]. The patient is admitted here neurology is consulted, also consult psychiatry for capacity as patient with multiple AMA and re-admissions in the past 24 hours. Review of Systems Except as stated in HPI: all other systems reviewed are Neg Past Family Social History Past Medical History Valve Issue Seizure DO HTN Past Surgical History Right Ankle Surgery Crainiotomy for shrapnel injury Reported Medications Last Impressions Head CT 12/16/17 0000 Signed Impressions: Service Date/Time: Saturday, December 16, 2017 13:04 - CONCLUSION: Negative exam. No acute intracranial process, trauma or fracture Rj Ni MD Allergies: Coded Allergies: Penicillins (Verified Allergy, Unknown, 12/15/17) iodine (Verified Allergy, Unknown, 12/15/17) Family History Does not know family medical history, family members when he was 15 Social History Recently moved here from [place]. Follows with the [facility] but has not estab;ished with the [facility] in the area Alcohol use, not daily - 2-3 beers twice a month Smoking 2-3 cigarettes/ day Denies Illicit drug use Physical Exam Vital Signs Vital Signs Date Time Temp Pulse Resp B/P (MAP) Pulse Ox O2 Delivery O2 Flow Rate FiO2 12/16/17 16:38 76 17 132/87 (102) 98 Room Air 12/16/17 13:19 67 19 139/90 (106) 97 Room Air 12/16/17 11:30 97 Room Air 12/16/17 11:30 100 Room Air 12/16/17 11:01 98.3 66 16 154/110 (125) 99 Physical Exam GENERAL: This is a well-nourished, well-developed patient, in no apparent distress. SKIN: No rashes, ecchymoses or lesions. Cool and dry. HEAD: Atraumatic. Normocephalic. No temporal or scalp tenderness. EYES: Pupils equal round and reactive. Extraocular motions intact. No scleral icterus. No injection or drainage. ENT: Nose without bleeding, purulent drainage or septal hematoma. Throat without erythema, tonsillar hypertrophy or exudate. Uvula midline. Airway patent. NECK: Trachea midline. No JVD or lymphadenopathy. Supple, nontender, no meningeal signs. CARDIOVASCULAR: Regular rate and rhythm without murmurs, gallops, or rubs. RESPIRATORY: Clear to auscultation. Breath sounds equal bilaterally. No wheezes , rales, or rhonchi. GASTROINTESTINAL: Abdomen soft, non-tender, nondistended. No hepato-splenomegaly , or palpable masses. No guarding. MUSCULOSKELETAL: Extremities without clubbing, cyanosis, or edema. No joint tenderness, effusion, or edema noted. No calf tenderness. Negative Homans sign bilaterally. NEUROLOGICAL: Awake and alert. Cranial nerves II through XII intact. Motor and sensory grossly within normal limits. Five out of 5 muscle strength in all muscle groups. Normal speech. Laboratory Laboratory Tests Test 12/16/17 11:45 12/16/17 15:45 White Blood Count 6.5 Red Blood Count 5.29 Hemoglobin 15.2 Hematocrit 43.2 Mean Corpuscular Volume 81.6 Mean Corpuscular Hemoglobin 28.7 Mean Corpuscular Hemoglobin Concent 35.1 Red Cell Distribution Width 14.1 Platelet Count 197 Mean Platelet Volume 9.2 Neutrophils (%) (Auto) 71.8 Lymphocytes (%) (Auto) 19.7 Monocytes (%) (Auto) 6.5 Eosinophils (%) (Auto) 1.5 Basophils (%) (Auto) 0.5 Neutrophils # (Auto) 4.7 Lymphocytes # (Auto) 1.3 Monocytes # (Auto) 0.4 Eosinophils # (Auto) 0.1 Basophils # (Auto) 0.0 CBC Comment DIFF FINAL Differential Comment Blood Urea Nitrogen 12 Creatinine 1.26 Random Glucose 103 Total Protein 8.0 Albumin 4.2 Calcium Level 9.5 Alkaline Phosphatase 64 Aspartate Amino Transf (AST/SGOT) 13 Alanine Aminotransferase (ALT/SGPT) 20 Total Bilirubin 0.9 Sodium Level 138 Potassium Level 3.6 Chloride Level 107 Carbon Dioxide Level 18.1 Anion Gap 13 Estimat Glomerular Filtration Rate 65 Valproic Acid (Depakene) Level 23 62 Phenytoin (Dilantin) Level 9.3 Result Diagram: 12/16/17 1145 12/16/17 1145 Imaging Last Impressions Head CT 12/16/17 0000 Signed Impressions: Service Date/Time: Saturday, December 16, 2017 13:04 - CONCLUSION: Negative exam. No acute intracranial process, trauma or fracture MD Chey Shepard VTE Risk Assessment Caprini VTE Risk Assessment: Mod/High Risk (score >= 2) Caprini Risk Assessment Model Point Value = 1 Point Value = 2 Point Value = 3 Point Value = 5 Age 41-60 Minor surgery BMI > 25 kg/m2 Swollen legs Varicose veins or History of unexplained or recurrent spontaneous Oral contraceptives or hormone replacement Sepsis (< 1 month) Serious lung disease, including pneumonia (< 1 month) Abnormal pulmonary function Acute myocardial infarction Congestive heart failure (< 1 month) History of inflammatory bowel disease Medical patient at bed rest Age 61-74 Arthroscopic surgery Major open surgery (> 45 min) Laparoscopic surgery (> 45 min) Malignancy Confined to bed (> 72 hours) Immobilizing plaster cast Central venous access Age >= 75 History of VTE Family history of VTE Factor V Leiden Prothrombin [id number] Lupus anticoagulant Anticardiolipin antibodies Elevated serum homocysteine Heparin-induced thrombocytopenia Other congenital or acquired thrombophilia Stroke (< 1 month) Elective arthroplasty Hip, pelvis, or leg fracture Acute spinal cord injury (< 1 month) Prophylaxis Regimen Total Risk Factor Score Risk Level Prophylaxis Regimen 0-1 Low Early ambulation 2 Moderate Order ONE of the following: *Sequential Compression Device (SCD) *Heparin 5000 units SQ BID 3-4 Higher Order ONE of the following medications: *Heparin 5000 units SQ TID *Enoxaparin/Lovenox 40 mg SQ daily (WT < 150 kg, CrCl > 30 mL/min) *Enoxaparin/Lovenox 30 mg SQ daily (WT < 150 kg, CrCl > 10-29 mL/min) *Enoxaparin/Lovenox 30 mg SQ BID (WT < 150 kg, CrCl > 30 mL/min) AND/OR *Sequential Compression Device (SCD) 5 or more Highest Order ONE of the following medications: *Heparin 5000 units SQ TID (Preferred with Epidurals) *Enoxaparin/Lovenox 40 mg SQ daily (WT < 150 kg, CrCl > 30 mL/min) *Enoxaparin/Lovenox 30 mg SQ daily (WT < 150 kg, CrCl > 10-29 mL/min) *Enoxaparin/Lovenox 30 mg SQ BID (WT < 150 kg, CrCl > 30 mL/min) AND *Sequential Compression Device (SCD) Assessment and Plan Assessment and Plan Patient is a 37-year-old male with primary medical history of seizure disorder, questionable valve disorder, noncompliance who came into the hospital for uncontrolled seizures. Seizure disorder Noncompliance with medication Left AMA x2 in 24 hrs , and came to ER 4x in 24 hrs, and admitted 2 x -Patient went to the hospital for evaluation of seizure early today however he does not want to stay and signed AGAINST MEDICAL ADVICE. -Valproic acid is 18 subtherapeutic. patient left AMa in the morning and returned. - Seen by Dr Marcano neurology. received cerebyx continue phenytoin 100 mg p.o. every 8 hours. Depakote increased to 750 mg daily, continue Keppra. [facility] DrAyaka to wean him off Keppra and Depakote per neurology. -Recheck levels -Seizure precaution -Neurochecks -Consult psychiatry also Substance abuse -Patient is positive for benzos, cannabinoids, ethanol alcohol -Patient was counseled on the risks and effects of substance use with seizure disorder. HTN Questionable heart valve disorder -Reports on Coumadin but was not compliant and only taking it 3 times a week. -Recent INR subtherapeutic -Check echo -Check EKG -Elevated BP, hold off lisinopril for now secondary to acute kidney injury, start amlodipine 5 mg daily. -Monitor BP trend PTSD? -We will consult psychiatry if warranted DVT prop Lovenox Discussed Condition With Patient, nurse, ED physician/PA Physician Certification 2 Midnight Certification Type: Admission for Inpatient Services Order for Inpatient Services The services are ordered in accordance with Medicare regulations or non- Medicare payer requirements, as applicable. In the case of services not specified as inpatient-only, they are appropriately provided as inpatient services in accordance with the 2-midnight benchmark. Estimated LOS (days): 3 days is the estimated time the patient will need to remain in the hospital, assuming treatment plan goals are met and no additional complications. Post-Hospital Plan: Home Jenn Maciel MD Dec 16, 2017 18:00
[2017-12-16] MEDS ORDERED: ACETAMINOPHEN/CODEINE 300 MG/30 MG TAB PO PRN (19:45)
[2017-12-16] MEDS ORDERED: DIVALPROEX SODIUM E.R. 500 MG TAB PO SCH (21:00)
[2017-12-16] MEDS: SODIUM CHLORIDE 0.9% FLUSH 10 ML FLUSH IV FLUSH SCH (21:00)
[2017-12-16] MEDS: DOCUSATE SODIUM 50 MG/SENNA 8.6 MG TAB PO SCH (21:00)
[2017-12-16] MEDS: DIVALPROEX SODIUM E.R. 250 MG TAB PO SCH (21:15)
[2017-12-16] MEDS: PHENYTOIN SODIUM 100 MG CAP PO SCH (22:00)
[2017-12-16] MEDS: LORazepam 2 MG/ML VIAL IV PUSH PRN ×2 (22:19→22:33)
[2017-12-16 23:41] LABS: TROPONIN I LESS THAN 0.02 NG/ML (0.02-0.05)
--- NOTE | 2017-12-16 23:49 | RADRPT ---
EXAM DATE/TIME: 12/16/2017 23:29 [facility] COMPARISON: CT BRAIN W/O CONTRAST, December 16, 2017, 13:04. INDICATIONS : Trauma; fall. RADIATION DOSE: 63.64 CTDIvol (mGy) MEDICAL HISTORY : Seizures. SURGICAL HISTORY : None. ENCOUNTER: Initial ACUITY: 1 day PAIN SCALE: 0/10 LOCATION: cranial TECHNIQUE: Multiple contiguous axial images were obtained of the head. Using automated exposure control and adj ustment of the mA and/or kV according to patient size, radiation dose was kept as low as reasonably a chievable to obtain optimal diagnostic quality images. DICOM format image data is available electro nically for review and comparison. FINDINGS: CEREBRUM: The ventricles are normal for age. No evidence of midline shift, mass lesion, hemorrhage or acute in farction. No extra-axial fluid collections are seen. POSTERIOR FOSSA: The cerebellum and brainstem are intact. The 4th ventricle is midline. The cerebellopontine angle i s unremarkable. EXTRACRANIAL: The visualized portion of the orbits is intact. SKULL: The calvaria is intact. No evidence of skull fracture. CONCLUSION: 1. Negative noncontrast CT brain. Eliezer Short MD on December 16, 2017 at 23:47 Board Certified Radiologist. This report was verified electronically.
[2017-12-17] VITALS: BP 119/84; PULSE 81; RESP 18; TEMP 97.1; O2SAT 96
[2017-12-17 00:53] LABS: TROPONIN I LESS THAN 0.02 NG/ML (0.02-0.05)
[2017-12-17 02:00] VITALS: BP 140/91; PULSE 64; RESP 20; TEMP 97.8; O2SAT 97
[2017-12-17] MEDS: PHENYTOIN SODIUM 100 MG CAP PO SCH ×2 (06:50→13:42)
[2017-12-17 07:11] LABS: ALBUMIN 3.9 GM/DL (3.4-5.0); ALT (GPT) 19 U/L (12-78); AST (GOT) 13 U/L (15-37); BICARBONATE 24.5 MEQ/L (21.0-32.0); BLOOD UREA NITROGEN 15 MG/DL (7-18); CALCIUM 8.9 MG/DL (8.5-10.1); CHLORIDE 107 MEQ/L (98-107); CREATININE 1.12 MG/DL (0.60-1.30); GLOMERULAR FILTRATION RATE 75 ML/MIN (>89); GLUCOSE,RANDOM 89 MG/DL (74-106); SODIUM (NA) 141 MEQ/L (136-145)
[2017-12-17 07:15] LABS: ALKALINE PHOSPHATASE 59 U/L (45-117); TOTAL BILIRUBIN ADULT 0.6 MG/DL (0.2-1.0); TOTAL PROTEIN 7.6 GM/DL (6.4-8.2); TROPONIN I LESS THAN 0.02 NG/ML (0.02-0.05)
[2017-12-17] MEDS ORDERED: ACETAMINOPHEN 500 MG CPLT PO PRN (08:30)
[2017-12-17] MEDS ORDERED: oxyCODONE/ACETAMINOPHEN 7.5 MG/325 MG TAB PO PRN (08:30)
[2017-12-17] MEDS: SODIUM CHLORIDE 0.9% FLUSH 10 ML FLUSH IV FLUSH SCH (09:00)
[2017-12-17] MEDS: DOCUSATE SODIUM 50 MG/SENNA 8.6 MG TAB PO SCH (09:07)
[2017-12-17] MEDS: DIVALPROEX SODIUM E.R. 250 MG TAB PO SCH (09:07)
--- NOTE | 2017-12-17 09:07 | HHI.PR ---
Subjective Remarks Follow up for seizure, TBI. Patient was very agitated this morning. I went to see patient and he complained of lack of nursing care despite being on the floor. However, nursing staff reports that patient was not on the floor and he received care whenever he requested it. After discussing at length, patient decided to stay. However, later in the day, he decided to leave AMA. Prior to his leaving, he was evaluated by psychiatry who determined that patient has capacity. Objective Vitals Vital Signs Date Time Temp Pulse Resp B/P (MAP) Pulse Ox O2 Delivery O2 Flow Rate FiO2 12/17/17 02:00 97.8 64 20 140/91 (107) 97 12/17/17 00:00 97.1 81 18 119/84 (96) 96 12/16/17 22:29 90 18 181/101 (127) 100 12/16/17 22:16 79 16 181/100 (127) 99 12/16/17 22:13 80 18 124/95 (105) 100 12/16/17 22:10 77 16 181/102 (128) 99 12/16/17 22:00 69 16 165/99 (121) 100 12/16/17 20:00 97.8 109 20 154/87 (109) 97 12/16/17 16:38 76 17 132/87 (102) 98 Room Air 12/16/17 13:19 67 19 139/90 (106) 97 Room Air 12/16/17 11:30 97 Room Air 12/16/17 11:30 100 Room Air 12/16/17 11:01 98.3 66 16 154/110 (125) 99 I/O 12/16/17 12/16/17 12/16/17 12/17/17 12/17/17 12/17/17 07:00 15:00 23:00 07:00 15:00 23:00 Intake Total 70 ml 105 ml Balance 70 ml 105 ml Intake IV Total 70 ml 105 ml # Voids 2 Result Diagram: 12/16/17 1145 12/17/17 0643 Imaging Last Impressions Head CT 12/16/17 0000 Signed Impressions: Service Date/Time: Saturday, December 16, 2017 23:29 - CONCLUSION: 1. Negative noncontrast CT brain. Eliezer Short MD Objective Remarks GENERAL: Alert, oriented x 3, NAD. SKIN: Warm and dry. HEAD: Normocephalic. EYES: No scleral icterus. No injection or drainage. NECK: Supple, trachea midline. No JVD or lymphadenopathy. CARDIOVASCULAR: Regular rate and rhythm without murmurs, gallops, or rubs. RESPIRATORY: Breath sounds equal bilaterally. No accessory muscle use. GASTROINTESTINAL: Abdomen soft, non-tender, nondistended. MUSCULOSKELETAL: No cyanosis, or edema. BACK: Nontender without obvious deformity. No CVA tenderness. A/P Assessment and Plan I evaluated patient in the morning around 8AM. He was initially agitated and unhappy with the care he was receiving. However, nursing staff did not confirm patient's impression of nursing care. After discussing with patient, he agreed to stay and continue to receive seizure medications and other recommendations. He was evaluated by psychiatry who determined that patient has capacity. Later in the afternoon patient decided to leave AGAINST MEDICAL ADVICE. He signed AMA paperwork and left against medical advice. Discharge patient to home Against medical Advice. Condition on discharge: Improved but guarded. Regular Diet as tolerated Ad Natalie activity Rx written: None. Follow-up with primary care physician as needed. Vinicius Gonzalez DO Dec 17, 2017 09:07
[2017-12-17 10:02] VITALS: BP 127/93; PULSE 75; RESP 20; TEMP 98.4; O2SAT 97
[2017-12-17 12:00] VITALS: BP 146/75; PULSE 89; RESP 25; TEMP 98.4; O2SAT 98
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
[2017-12-17 18:10] VITALS: O2SAT 100
--- NOTE | 2017-12-17 20:03 | EKG ---
Date Performed: 12/17/2017 Time Performed: 10:06:58 PTAGE: 37 years EKG: Sinus rhythm POSSIBLE RIGHT VENTRICULAR CONDUCTION DELAY BORDERLINE ECG PREVIOUS TRACING : 12/17/2017 00.45 Since the previous tracing, no significant change noted DOCTOR: Steve Joaquin Interpretating Date/Time 12/17/2017 20:03:03
--- NOTE | 2017-12-17 20:33 | EKG ---
Date Performed: 12/17/2017 Time Performed: 00:45:56 PTAGE: 37 years EKG: Sinus rhythm . Normal ECG PREVIOUS TRACING : 12/15/2017 07.44 Since the previous tracing, no significant change noted DOCTOR: Steve Joaquin Interpretating Date/Time 12/17/2017 20:31:08
== END 2017-12-17 18:17 | disposition left against medical advice (07) | DRG 101 ==
LOC: NEPD 10:58 → NEDA 14:39 → N07B 19:45 → N03B 12-17 01:57
PROVIDERS: ADMIT Hospitalist; ATTEND Hospitalist
DX: G40.919 Epilepsy, unspecified, intractable, without status epilepticus (principal); I10 Essential (primary) hypertension; Z91.14 Patient's other noncompliance with medication regimen; F17.210 Nicotine dependence, cigarettes, uncomplicated; F12.90 Cannabis use, unspecified, uncomplicated
CPT/HCPCS: 70450; 80053; 80164; 80185; 82550; 84484; 85025; 93005; 94002; 96365; 96367; 96375; 96376; J2060; Q2009